=== PATIENT | male | born 1955 | race Caucasian/White ===

== ENCOUNTER 2016-12-12 13:30 | Emergency (ER) | payer MEDICAID ==
[~2016-12-12] VITALS: Ht 188 cm; Wt 92.0 kg
[~2016-12-12 13:30] MED LIST: ATROPINE SULFATE 1 MG/10 ML SYRINGE IV ONE; EPINEPHrine HCL (1:10,000) 1 MG/10 ML SYRINGE IV ONE; SODIUM BICARBONATE 8.4% INJ 50 MEQ/50 ML SYR IV ONE
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
== END 2016-12-12 18:48 | disposition expired ==
LOC: NEPE 13:30 → EDBD 13:30 → NEPI 18:48
DX: I45.89 Other specified conduction disorders (principal); I46.9 Cardiac arrest, cause unspecified; X58.XXXA Exposure to other specified factors, initial encounter; Y92.832 Beach as the place of occurrence of the external cause
CPT/HCPCS: 92950; 99284; J0171; J0461